=== PATIENT | male | born 1960 ===

== ENCOUNTER 2019-02-26 05:54 | Outpatient (CLI) | payer MEDICAID ==
[~2019-02-26] VITALS: Ht 188 cm; Wt 109.0 kg
[2019-02-27] MEDS ORDERED: VENL75TA2 PO (09:37)
[2019-02-27] MEDS ORDERED: ATOR10TA66 PO (09:37)
[2019-02-27] MEDS ORDERED: GBPN600T PO (09:37)
[2019-02-27] MEDS ORDERED: FURO40TA4 PO (09:37)
[2019-02-27] MEDS ORDERED: LORA10TA7 PO (09:37)
[2019-02-27] MEDS ORDERED: NABU500T PO (09:37)
[2019-02-27] MEDS ORDERED: ARIP10TA17 PO (09:37)
[2019-02-27] MEDS ORDERED: MIRT15TA6 PO (09:37)
[2019-02-27] MEDS ORDERED: SITA100T12 PO (09:37)
[2019-02-27] MEDS ORDERED: POTA10CA43 PO (09:37)
[2019-02-27] MEDS ORDERED: HYDR25TA4 PO (09:37)
[2019-02-27] MEDS ORDERED: AMLO10TA7 PO (09:37)
[2019-02-27] MEDS ORDERED: LISI40TA PO (09:37)
[2019-02-27] MEDS ORDERED: BACL10TA PO (09:37)
[2019-02-27] MEDS ORDERED: METF-399 PO (14:16)
== END 2019-02-26 15:00 | disposition home or self-care (01) ==
LOC: PREOP 05:54
PROVIDERS: ATTEND Otolaryngology Otolaryngology/Facial Plastic Surgery
DX: Z01.818 Encounter for other preprocedural examination (principal)

== ENCOUNTER 2019-03-07 06:05 | Day surgery (SDC) | payer MEDICAID ==
--- NOTE | 2019-02-27 14:18 | NUR ---
[facility] FAX OVER A LIST OF MEDICATIONS. THEY FAXED OVER WHAT WAS FILLED ON 02-26-19. THEY APPARENTLY PRE PACK HIS MEDS FOR HIM ONE WEEK AT A TIME. THEY STATE THIS PRINT OUT REFLECTS EVERYTHING HE TAKES DESPITE IT BEING FOR JUST 1 DAY. I CALLED THE PATIENT AND HE VERIFIED HE TAKES EVERYTHING THEY PRE PACK FOR HIM DAILY. HE DOES NOT TAKE ANYTHING ELSE OTC OR NEEDED THAT IS NOT IN THAT PACK. [facility] FILLED: 02-26-19 NABUMETONE 500MG BID #14 02-26-19 VENLAFAXINE ER 75MG DAILY #7 02-26-19 ATORVASTATIN 10MG HS #7 02-26-19 JANUVIA 100MG DAILY #7 01-26-19 METFORMIN 1000MG BID #14 02-26-19 POTASSIUM CHLORIDE 10MEQ BID #14 02-26-19 BACLOFEN 10MG TID #21 02-26-19 LISINOPRIL 40MG DAILY #7 02-26-19 LORATADINE 10MG DAILY #7 02-26-19 AMLODIPINE 10MG DAILY #7 02-26-19 MIRTAZAPINE 15MG HS #7 02-26-19 GABAPENTIN 600MG TID #21 02-26-19 ARIPIPRAZOLE 10MG 1/2 BID #7 02-26-19 HYDROCHLOROTHIAZIDE 25MG DAILY #7 02-26-19 FUROSEMIDE 40MG BID #14
[~2019-03-07] VITALS: Ht 188 cm; Wt 111.4 kg
[~2019-03-07 06:05] MED LIST: AMLO10TA7 PO; ARIP10TA17 PO; ATOR10TA66 PO; BACL10TA PO; FURO40TA4 PO; GBPN600T PO; HYDR25TA4 PO; LISI40TA PO; LORA10TA7 PO; METF-399 PO; MIRT15TA6 PO; NABU500T PO; POTA10CA43 PO; SITA100T12 PO; VENL75TA2 PO
[2019-03-07 06:30] VITALS: BP 129/86
[2019-03-07] MEDS ORDERED: proPOfol 200 MG/20 ML (DIPRIVAN) VIAL IV ONE (06:48)
[2019-03-07] MEDS ORDERED: LIDOCAINE PF 2% 5 ML (XYLOCAINE) VIAL ONE (06:48)
[2019-03-07] MEDS ORDERED: SEVOFLURANE (ULTANE) 15 ML INHAL SOLN ONE ×2 (06:48→09:38)
[2019-03-07] MEDS ORDERED: fentaNYL INJECTION 100 MCG/2 ML AMP ONE ×2 (06:48→08:52)
[2019-03-07] MEDS ORDERED: ONDANSETRON 4 MG/2 ML (SDV) Z0FRAN ONE (06:48)
[2019-03-07] MEDS ORDERED: MIDAZOLAM 2 MG/2 ML (VERSED) VIAL ONE (06:49)
[2019-03-07] MEDS ORDERED: ROCURONIUM 10 MG/ML 5 ML SYRINGE IV ONE (06:49)
[2019-03-07] MEDS ORDERED: MUPIROCIN 2% OINT 22 GM (BACTROBAN) TUBE ONE (07:01)
[2019-03-07] MEDS ORDERED: LIDOCAINE/EPI 1%-1:100,000 (XYLOCAINE) 20ML ONE (07:01)
--- NOTE | 2019-03-07 07:45 | Progress Note-Pre Operative ---
Pre-Operative Progress Note H&P Reviewed The H&P was reviewed, patient examined and no changes noted. Date Seen by Provider: Mar 07, 2019 Time Seen by Provider: 07:00 Date H&P Reviewed: Mar 07, 2019 Time H&P Reviewed: 07:00 Pre-Operative Diagnosis: Left Protid Mass TOÑO MORGAN MD Mar 07, 2019 07:45
[2019-03-07] MEDS: LACTATED RINGERS 1,000 ML IV PRN ×2 (08:55→10:07)
[2019-03-07] MEDS ORDERED: HYDROmorphone 2 MG/ML VIAL (DILAUDID) ONE (09:15)
[2019-03-07] MEDS ORDERED: SUCCINYLCHOLINE INJ 100 MG/5 ML SYR ONE (09:38)
[2019-03-07] MEDS ORDERED: BSS 15 ML ONE (10:12)
[2019-03-07] MEDS ORDERED: D5 1/2 NS W/KCL 20 MEQ/L 1,000 ML IV SCH (10:14)
--- NOTE | 2019-03-07 10:14 | Progress Note-Post Operative ---
Post-Operative Progess Note Surgeon (s)/Lode Miner (s) Surgeon TOÑO MORGAN MD Lode Miner n/a Pre-Operative Diagnosis Left Protid Mass Post-Operative Diagnosis same Post-Op Procedure Note Date of Procedure: Mar 07, 2019 Name of Procedure Performed: Left supefricial parotiectoy with preservation of the FAcial Nerve Description & Findings Description and Findings: n/a Anesthesia Type get Estimated Blood Loss minimal Packing none. Specimen(s) collected/removed left parotid number 7 ELSIE TOÑO Daniel MD Mar 07, 2019 10:14
[2019-03-07] MEDS ORDERED: ACETAMINOPHEN 325 MG TABLET PO PRN (10:15)
[2019-03-07] MEDS ORDERED: morphine INJ 10 MG/ML 1ML (SYR OR VIAL) IVP ONE (10:30)
[2019-03-07] MEDS ORDERED: ONDANSETRON 4 MG/2 ML (SDV) Z0FRAN IVP PRN (10:30)
[2019-03-07] MEDS ORDERED: HYDROmorphone 2 MG/ML VIAL (DILAUDID) IV ONE (10:30)
[2019-03-07] MEDS ORDERED: MEPERIDINE (DEMEROL) INJ 50 MG/ML IVP ONE (10:30)
[2019-03-07 11:55] VITALS: BP 137/82
[2019-03-07] MEDS: HYDROcodone/APAP 5 MG/325 MG (LORTAB) TAB PO PRN ×2 (12:50→17:25)
--- NOTE | 2019-03-07 13:11 | NUR ---
REPORT GIVEN FROM BRIANNA OLIVO. PT HAD PACOTIDECTOMY DONE THIS A.M. PATIENTS INCISION IS SUTURED WITH ELSIE DRAIN INTACT WITH SOME BLOODY DRAINAGE. PATIENT HAS BEEN ORIENTED TO ROOM.
[2019-03-07] MEDS: BACLOFEN 10 MG (LIORESAL) TAB PO SCH ×2 (14:40→19:53)
[2019-03-07] MEDS: GABAPENTIN 600 MG (NEURONTIN) TAB PO SCH ×2 (14:40→19:54)
[2019-03-07 16:00] VITALS: BP 107/59
[2019-03-07] MEDS: inSUlin ASPART (NovoLOG) 1 UNIT/0.01 ML (CHARGE PER UNIT) SC SCH ×2 (16:21→21:13)
[2019-03-07] MEDS: metFORMIN 500 MG (GLUCOPHAGE) TAB PO SCH (16:51)
[2019-03-07] MEDS: IBUPROFEN 600 MG (MOTRIN) TAB PO SCH (16:52)
[2019-03-07] MEDS: KCL 10 MEQ TAB (MICRO K) PO SCH (16:52)
[2019-03-07] MEDS: FUROSEMIDE 40 MG (LASIX) TAB PO SCH (16:52)
[2019-03-07] MEDS ORDERED: NON-FORMULARY MEDICATION 1 EA EA (Nabumetone 500 MG) PO SCH (17:00)
[2019-03-07] MEDS ORDERED: NON-FORMULARY MEDICATION 1 EA EA (Potassium Chloride 10 MEQ) PO SCH (17:00)
[2019-03-07 19:05] VITALS: BP 97/55
[2019-03-07] MEDS ORDERED: NON-FORMULARY MEDICATION 1 EA EA (Mirtazapine 15 MG) PO SCH (21:00)
[2019-03-07] MEDS ORDERED: NON-FORMULARY MEDICATION 1 EA EA (Metformin HCl 1,000 MG) PO SCH (21:00)
[2019-03-07] MEDS ORDERED: MIRTAZAPINE 15 MG (REMERON) TAB PO SCH (21:00)
[2019-03-07] MEDS ORDERED: NON-FORMULARY MEDICATION 1 EA EA (Aripiprazole 5 MG) PO SCH (21:00)
[2019-03-08] VITALS: BP 96/58
[2019-03-08 04:00] VITALS: BP 110/66
[2019-03-08] MEDS: FUROSEMIDE 40 MG (LASIX) TAB PO SCH (05:52)
[2019-03-08] MEDS: metFORMIN 500 MG (GLUCOPHAGE) TAB PO SCH (05:52)
[2019-03-08] MEDS: IBUPROFEN 600 MG (MOTRIN) TAB PO SCH (05:52)
[2019-03-08] MEDS: KCL 10 MEQ TAB (MICRO K) PO SCH (05:52)
[2019-03-08] MEDS: inSUlin ASPART (NovoLOG) 1 UNIT/0.01 ML (CHARGE PER UNIT) SC SCH (05:55)
--- NOTE | 2019-03-08 06:48 | Progress Note ---
Standard Progress Note Progress Notes/Assess & Plan Date Seen by a Provider: Mar 08, 2019 Time Seen by a Provider: 06:45 Progress/Assessment & Plan ENT-Sandra Doing Well Facial movements [id number] bilat Drain-decreased drainage-drain dc'ed incision dry and intact will [id number] days in [facility] for suture removal discharge prescriptiosn in chart Final Diagnosis warthins tumor left parotid TOÑO MORGAN MD Mar 08, 2019 06:48
[2019-03-08] MEDS ORDERED: VENlafaxine XR 75 MG (EFFEXOR XR) CAP PO SCH (07:00)
[2019-03-08] MEDS ORDERED: LINAGLIPTIN (TRADJENTA) 5 MG TABLET PO SCH (07:00)
[2019-03-08] MEDS: BACLOFEN 10 MG (LIORESAL) TAB PO SCH (08:01)
[2019-03-08] MEDS: GABAPENTIN 600 MG (NEURONTIN) TAB PO SCH (08:01)
--- NOTE | 2019-03-08 08:02 | NUR ---
PT DISCHARGED. REFUSED AM MEDS. STATES HE WILL TAKE WHEN HE GETS HOME IT WILL BE CHEAPER. SMALL AMOUNT DRAINAGE FROM OLD DRAIN SITE. STERILE DRESSING APPLIED.
[2019-03-08] MEDS ORDERED: [UNRECOGNIZED DRUG - MIXTURE] PO (08:20)
[2019-03-08] MEDS ORDERED: HYDROCODONE/APAP PO (08:22)
--- NOTE | 2019-03-08 08:42 | NUR ---
DC'D PER WC WITH DTR. RX AND INST AND VERBALIZED UNDERSTANDING.
[2019-03-08 08:43] VITALS: BP 114/63
[2019-03-08] MEDS ORDERED: LORATADINE (CLARITIN) 10 MG TAB PO SCH (09:00)
[2019-03-08] MEDS ORDERED: lisINopril 40 MG (PRINIVIL) TABLET PO SCH (09:00)
[2019-03-08] MEDS ORDERED: HYDROCHLOROTHIAZIDE 25 MG (HCTZ) TAB PO SCH (09:00)
[2019-03-08] MEDS ORDERED: amLODIPine 10 MG (NORVASC) TAB PO SCH (09:00)
[2019-03-08] MEDS ORDERED: NON-FORMULARY MEDICATION 1 EA EA (Sitagliptin Phosphate (Januvia) 100 MG) PO SCH (09:00)
[2019-03-08] MEDS ORDERED: NON-FORMULARY MEDICATION 1 EA EA (Hydrochlorothiazide 25 MG) PO SCH (09:00)
[2019-03-08] MEDS ORDERED: NON-FORMULARY MEDICATION 1 EA EA (Amlodipine Besylate 10 MG) PO SCH (09:00)
[2019-03-08] MEDS ORDERED: NON-FORMULARY MEDICATION 1 EA EA (Venlafaxine HCl (Venlafaxine HCl ER) 75 MG) PO SCH (09:00)
--- NOTE | 2019-03-08 10:00 | Anesthesia-General Post-Op ---
General Patient Condition Mental Status/LOC: Same as Preop Cardiovascular: Satisfactory Nausea/Vomiting: Absent Respiratory: Satisfactory Pain: Controlled Complications: Absent Post Op Complications Complications None Follow Up Care/Instructions Patient Instructions None needed. Anesthesia/Patient Condition Patient Condition Patient is doing well, no complaints, stable vital signs, no apparent adverse anesthesia problems. No complications reported per nursing. D/C home per [facility] Criteria: Yes KENRICK HUYNH CRNA Mar 08, 2019 10:00
== END 2019-03-08 08:40 ==
LOC: SDC 06:05 → 4TH 11:46 → SDC 03-08 08:40
PROVIDERS: ATTEND Otolaryngology Otolaryngology/Facial Plastic Surgery
DX: D11.0 Benign neoplasm of parotid gland (principal); F32.9 Major depressive disorder, single episode, unspecified; F41.9 Anxiety disorder, unspecified; E11.42 Type 2 diabetes mellitus with diabetic polyneuropathy; M06.9 Rheumatoid arthritis, unspecified; E66.9 Obesity, unspecified; Z68.31 Body mass index [BMI] 31.0-31.9, adult; Z90.49 Acquired absence of other specified parts of digestive tract; Z79.84 Long term (current) use of oral hypoglycemic drugs; Z87.891 Personal history of nicotine dependence; Z79.891 Long term (current) use of opiate analgesic; Z79.899 Other long term (current) drug therapy; Z89.612 Acquired absence of left leg above knee
CPT/HCPCS: 82962; 87081; 88307; 88331